=== PATIENT | male | born 1995 | race Caucasian/White ===

== ENCOUNTER 2023-07-27 15:04 | Emergency (ER) | payer MEDICAID ==
[~2023-07-27] VITALS: Ht 180.3 cm; Wt 65.2 kg
[2023-07-27 16:54] LABS: BASOPHILS 0.5 % (0-2); HEMATOCRIT 45.6 % (35.0-50.0); HEMOGLOBIN 15.1 g/dL (12.0-18.0); LYMPHOCYTES 21.4 % (24-44); MCH 27.9 (27-36); MCHC 33.2 g/dl (30-36); MONOCYTES 7.2 % (0-12); NEUTROPHILS 67.9 % (39-80); PLATELET COUNT 279 K/uL (140-440); RBC 5.43 M/ul (4.3-5.7); RDW 13.6 (10.5-15.0)
[2023-07-27 17:09] LABS: ALBUMIN 4.5 g/dL (3.4-5.0); ALBUMIN/GLOBULIN RATIO 1.29 (1.1-2.4); ANION GAP 14.7 (7-21); BILIRUBIN, TOTAL 0.3 ng/dL (0.2-1.0); BUN/CREATININE RATIO 15.58 (6.0-28.6); CALCIUM 9.9 mg/dL (8.5-10.1); CREATININE, SERUM 0.77 mg/dL (0.70-1.30); POTASSIUM 3.7 mmol/L (3.5-5.1)
[2023-07-27 17:18] LABS: BILIRUBIN, URINE NEGATIVE (negative); BLOOD/HGB, URINE NEGATIVE (Negative); KETONE, URINE NEGATIVE (Negative); LEUK ESTERASE, URINE NEGATIVE (negative); NITRITE, URINE NEGATIVE (negative)
[2023-07-27] MEDS ORDERED: ONDANSETRON ODT8 MG PO (17:47)
[2023-07-27] MEDS ORDERED: HYDROXYZINE HCL25 MG PO (17:47)
[2023-07-27 18:17] VITALS: BP 123/88
--- NOTE | 2023-07-28 20:52 | EKG ---
[facility] [address] [facility] [place] [address] Signed Sinus bradycardia Otherwise normal ECG No previous ECGs available Confirmed by Harry Kohler MD () on 07/28/2023 8:52:35 PM Electronically Signed By: HARRY KOHLER MD 07/28/232051 PATIENT NAME: CELI DUQUE Electrocardiogram DATE OF : [birth year] PHYSICIAN: HARRY KOHLER MD REPORT #: [id number] REPORT IS CONFIDENTIAL AND NOT TO BE RELEASED WITHOUT AUTHORIZATION
== END 2023-07-27 18:17 | disposition home or self-care (01) ==
LOC: ED 15:04
PROVIDERS: Emergency Medicine
DX: R10.11 Right upper quadrant pain (principal)
CPT/HCPCS: 36415; 80053; 81003; 83690; 85025; 93005; 93010; 96374; 99284-25; J2405